=== PATIENT | female | born 1995 | race Caucasian/White ===

== ENCOUNTER 2019-08-22 12:20 | Emergency (ER) | payer OTHER, SELFPAY ==
[2019-08-22] MEDS ORDERED: Sodium Chloride 0.9% 1,000 ML ONE (13:00)
[2019-08-22 13:16] LABS: #Basophils 0.1 thou/uL (0.0-0.2); #Eosinphils 0.1 thou/uL (0.0-0.7); #Lymphocytes 0.9 thou/uL (1.20-3.40); #Monocytes 0.7 thou/uL (0.11-0.59); #Neutrophils 4.2 thou/uL (1.40-6.50); %Basophils 1.3 % (0.0-1.0); %Eosinophils 1.2 % (0.0-10.0); %Monocytes 10.9 % (0.0-10.0); %Neutrophils 71.6 % (42.0-75.0); Hemoglobin 11.2 g/dL (12.0-16.0); Mean Corpuscular HGB CONC 33.8 g/dL (32.0-36.0); Mean Corpuscular Hemoglobin 29.5 pg (27.0-31.0); Mean Corpuscular Volume 87.5 fL (78.0-98.0); Mean Platelet Volume 10.2 fL (7.4-10.4); Platelet Count 175 thou/uL (130-400); RBC Distribution Width 12.4 % (11.5-14.5); Red Blood Cell (RBC) Count 3.79 mill/uL (4.20-5.40); White Blood Cell (WBC) Count 5.9 thou/uL (4.8-10.8)
[2019-08-22 13:30] LABS: Anion Gap 14 mmol/L (10-20); BUN (Urea Nitrogen) 5 mg/dL (7.0-18.7); Calc. Creatinine Clearance 0 mL/min (70-130); Calcium 8.7 mg/dL (7.8-10.44); Carbon Dioxide 18 mmol/L (22-29); Chloride 109 mmol/L (98-107); Estimated GFR-MDRD Greater than 90; Glucose 101 mg/dL (70-105); Potassium 3.6 mmol/L (3.5-5.1); Sodium 137 mmol/L (136-145)
[2019-08-22 13:33] LABS: Bilirubin Negative (Negative); Blood, Urine Negative (Negative); Glucose, Urine (Dipstick) Negative (Negative); Leukocyte Negative (Negative); Nitrite Negative (Negative); Protein, Urine (Dipstick) Negative (Neg-Trace); Urobilinogen 0.2 mg/dL (Less than 2)
[2019-08-22 13:41] LABS: Clarity Cloudy (Clear)
== END 2019-08-22 14:08 | disposition home or self-care (01) ==
LOC: NAV ERS 12:20
DX: O99.282 Endocrine, nutritional and metabolic diseases complicating pregnancy, second trimester (principal); E86.9 Volume depletion, unspecified; Z3A.26 26 weeks gestation of pregnancy
CPT/HCPCS: 80048; 81003; 84443; 85025; 96360; J7050

== ENCOUNTER 2020-06-20 08:32 | Emergency (ER) | payer SELFPAY ==
[2020-06-20] MEDS ORDERED: Fluorescein Opthalmic Strip ONE (09:12)
[2020-06-20] MEDS ORDERED: Tetracaine HCl 0.5% Ophth Soln 2 ML Bottle ONE (09:12)
== END 2020-06-20 09:30 | disposition home or self-care (01) ==
LOC: NAV ERS 08:32
DX: H10.9 Unspecified conjunctivitis (principal); R59.0 Localized enlarged lymph nodes
CPT/HCPCS: 99283

== ENCOUNTER 2021-08-16 19:22 | Emergency (ER) | payer SELFPAY ==
[2021-08-16] MEDS ORDERED: Ibuprofen 800 MG TAB ONE (20:21)
[2021-08-16] MEDS ORDERED: Bicillin LA 1.2 MILLION UNITS/2 ML SYRINGE ONE (21:09)
== END 2021-08-16 21:30 | disposition home or self-care (01) ==
LOC: NAV ERS 19:22
DX: J02.0 Streptococcal pharyngitis (principal)
CPT/HCPCS: 87430; 96372; 99284; J0561

== ENCOUNTER 2024-01-25 17:30 | Emergency (ER) | payer OTHER | END 2024-01-25 18:15 | disposition home or self-care (01) | LOC: NAV ERS 17:30 | DX: J32.1 Chronic frontal sinusitis (principal); J32.0 Chronic maxillary sinusitis | CPT/HCPCS: 99283 ==

== ENCOUNTER 2024-04-18 16:03 | Emergency (ER) | payer OTHER | END 2024-04-18 16:45 | disposition home or self-care (01) | LOC: NAV ERS 16:03 | DX: J01.90 Acute sinusitis, unspecified (principal); R03.0 Elevated blood-pressure reading, without diagnosis of hypertension | CPT/HCPCS: 99283 ==